=== PATIENT | female | born 1960 | race Caucasian/White ===

== ENCOUNTER 2019-03-17 09:15 | Day surgery (SDC) | payer BC ==
[2019-03-16 12:38] VITALS: BMI 25.7
--- NOTE | 2019-03-16 17:56 | HP ---
HISTORY OF PRESENT ILLNESS: Ms. Khoury is a pleasant 59-year-old woman here today for evaluation of four weeks worth of severe right-sided lower back pain and posterior right lower extremity pain that would best fit in S1 pattern. She reports sitting while in the restroom when she went to take a step, she had sudden onset of pain that brought her to the ground. She has never had any issue with this in the past. She has since been using a walker and then capable of standing up straight. She has treated this with physical therapy, epidural steroid injections which did not provide any relief. The PT was actually intolerable secondary to pain. X-ray of the lumbar spine and hip reveal mild degenerative changes. 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 PAST MEDICAL HISTORY: Significant for headaches, hypertension, osteoarthritis. CURRENT MEDICATIONS: 1. Scopolamine. 2. Hydromorphone. 3. Ecotrin. 4. Triamterene and hydrochlorothiazide. 5. Phentermine. 6. Gabapentin. 7. Celebrex. 8. Atenolol. 9. Topiramate. 10. Osphena. 11. Azo tablet. 12. Vitamin B complex. PHYSICAL EXAMINATION: GENERAL: The patient is alert and oriented x3. MUSCULOSKELETAL: Gait is severely antalgic and slowed, unable to stand upright, has to use walker for ambulation. Lower extremity motor exam is normal, although secondary to pain. Positive straight leg raise on the right. ASSESSMENT: Lumbar radiculopathy. PLAN: Dr. Barraza met with the patient, reviewed imaging of her right L5 decompression. He explained the risks, benefits, and alternatives to the procedure. The patient expressed understanding and elected to move forward with surgery as discussed. I do believe the patient is mentally competent and capable of making medical decisions for herself. We will move forward with surgery as planned. Job ID: [id number]
[2019-03-17] MEDS ORDERED: Rocuronium Bromide 10 MG/ML (10ML VIAL) ONE (10:08)
[2019-03-17] MEDS ORDERED: ePHEDrine/0.9% NaCl/PF SYRINGE 50 mg/10 ml ONE (10:08)
[2019-03-17] MEDS ORDERED: Glycopyrrolate 0.2 MG/ML 5 ML SYRINGE ONE (10:08)
[2019-03-17] MEDS ORDERED: Lidocaine 1% PF 5 ML VIAL ONE (10:08)
[2019-03-17] MEDS ORDERED: Dexamethasone 20 MG/5 ML VIAL ONE (10:08)
[2019-03-17] MEDS ORDERED: PHENYLEPHRINE-NS 100 MCG/ML 10 ML SYRINGE ONE (10:08)
[2019-03-17] MEDS ORDERED: PROPOFOL 200 MG/20 ML VIAL ONE (10:08)
[2019-03-17] MEDS ORDERED: Ondansetron PF 4 MG/2 ML Vial ONE (10:08)
[2019-03-17 10:09] LABS: BHCG - Serum Negative (NEGATIVE); Pregs Control Background? CLEAR/WHITE (CLR/WHITE); Pregs Control Bar Appear? YES (CONTROL BAR)
[2019-03-17 10:27] LABS: Anion Gap 13 mmol/L (10-20); BUN (Urea Nitrogen) 29 mg/dL (9.8-20.1); Calc. Creatinine Clearance 64 mL/min (70-130); Calcium 9.5 mg/dL (7.8-10.44); Carbon Dioxide 20 mmol/L (22-29); Chloride 114 mmol/L (98-107); Estimated GFR-MDRD 56; Glucose 96 mg/dL (70-105); Potassium 4.9 mmol/L (3.5-5.1); Sodium 142 mmol/L (136-145)
[2019-03-17] MEDS ORDERED: Scopolamine 1.5 mg/72 hour Patch ONE (11:08)
[2019-03-17] MEDS ORDERED: Thrombin 5000 UNITS/5 ML VIAL ONE (11:24)
[2019-03-17] MEDS ORDERED: Bupivacaine HCl 0.5%/Epinephrine 1:200,000/PF 30 ml Vial ONE (11:24)
[2019-03-17] MEDS ORDERED: Fentanyl 250 MCG/5 ML VIAL ONE (11:47)
[2019-03-17] MEDS ORDERED: Fentanyl 100 MCG/2 ML VIAL ONE (14:18)
[2019-03-17] MEDS ORDERED: Promethazine HCl 25 MG/ML VIAL ONE (16:19)
[2019-03-17] MEDS ORDERED: HYDROcodone/Acetaminophen 5/325 mg Tablet ONE (17:15)
--- NOTE | 2019-03-18 12:28 | OP ---
DATE OF PROCEDURE: 03/17/2019 GAMB CUTTER: Javier Vasquez PA-C INDICATION: Pain. DIAGNOSIS: Lumbar radiculopathy. PROCEDURE PERFORMED: Right L5 decompression for right S1 radiculopathy. ANESTHESIA: General. DESCRIPTION OF PROCEDURE: The patient was brought into the operating room and placed under general anesthesia. She was flipped from the supine to prone position on the operating room table. A linear incision was planned over the L5-S1 segment. After prepping and draping and after an appropriate operative pause, the incision was created. The soft tissues were swept right of midline. A self-retaining retractor was placed in the wound for optimal exposure. After confirming appropriate level with C-arm fluoroscopy, high-speed cutting drill bit as well as 2, 3 and 4 mm Kerrisons were used to perform a laminectomy, which extended along the inferior aspect of L5 and the superior aspect of S1. The laminectomy was extended laterally to encompass the medial aspect of the facet joint in order to decompress the descending S1 nerve root within the lateral recesses. After the decompression was complete, the wound was irrigated. Hemostasis was maintained throughout. The wound was then closed in anatomic layers and a pressure dressing was applied. There were no known procedural complications. Job ID: [id number]
--- NOTE | 2019-03-21 16:10 | EKG ---
Test Reason : PREOP Blood Pressure : / mmHG Vent. Rate : 054 BPM Atrial Rate : 054 BPM P-R Int : 186 ms QRS Dur : 088 ms QT Int : 430 ms P-R-T Axes : 076 039 045 degrees QTc Int : 407 ms Sinus bradycardia Otherwise normal ECG No previous ECGs available Confirmed by DR. Tripp RAE ([id number]) on 03/21/2019 4:09:51 PM Referred By: HAMZAH Confirmed By:DR. Tripp RAE
== END 2019-03-17 17:25 | disposition home or self-care (01) ==
LOC: SDC 09:15
PROVIDERS: ATTEND Neurological Surgery
PROC: 01NB0ZZ Release Lumbar Nerve, Open Approach (ICD-10-PCS; principal; 2019-03-17)
DX: M48.061 Spinal stenosis, lumbar region without neurogenic claudication (principal); M51.16 Intervertebral disc disorders with radiculopathy, lumbar region; G89.4 Chronic pain syndrome; I10 Essential (primary) hypertension; M19.90 Unspecified osteoarthritis, unspecified site; Z79.899 Other long term (current) drug therapy
CPT/HCPCS: 36415; 76000; 80048; 84703; 93005; 93010; J0670; J0690; J1100; J2001; J2405; J2550; J2704; J3010